=== PATIENT | male | born 1940 | race Caucasian/White ===

== ENCOUNTER → 2017-03-21 | Outpatient (CLI) | payer MEDICARE, BC | END | disposition home or self-care (01) | LOC: MRI 10:47 | DX: M54.40 Lumbago with sciatica, unspecified side (principal); M51.26 Other intervertebral disc displacement, lumbar region; M51.27 Other intervertebral disc displacement, lumbosacral region; Z85.46 Personal history of malignant neoplasm of prostate | CPT/HCPCS: 72131 ==

== ENCOUNTER → 2018-01-22 | Outpatient (CLI) | payer MEDICARE, BC ==
[~2018-01-22] MED LIST: ABIR500T PO; AMLO2.5T3 PO; AMLO5TAB7 PO; ASPI325T8 PO; ASPI81TA50 PO; ATOR20TA58 PO; BICA50TA47 PO; CALC600T4 PO; CHOL10003 PO; DEGA80VI3 SQ; DENO120V SQ; FOLI1TAB16 PO; GOSE10.8 SQ; HYDR-2761 PO; LEUP22.52 IM; LEUP45SY3 SQ; METO50TA6 PO; OMEG1CAP38 PO; OXYB5TAB PO; PRED5TAB PO; TAMS0.4C97 PO; TRAZ-86 PO; VENL37.5 PO
[2018-01-22 08:51] LABS: HEMATOCRIT 27.6 % (39.0-53.0); HEMOGLOBIN 9.1 g/dL (13.0-17.5)
[2018-01-22 10:24] VITALS: BP 122/59
[2018-01-22 11:10] VITALS: BP 122/61
[2018-01-22 12:07] VITALS: BP 131/62
[2018-01-22 12:29] VITALS: BP 131/62
== END ==
LOC: OPS 08:00
PROVIDERS: ATTEND Internal Medicine Hematology & Oncology
DX: C61 Malignant neoplasm of prostate (principal); M54.40 Lumbago with sciatica, unspecified side; Z95.0 Presence of cardiac pacemaker; Z85.830 Personal history of malignant neoplasm of bone
CPT/HCPCS: 36415; 36430; 85014; 85018; 86850; 86900; 86901; 86920; P9016

== ENCOUNTER 2018-12-20 02:44 | Inpatient (IN) | payer MEDICARE, BC ==
[~2018-12-20] VITALS: Ht 175.3 cm
[~2018-12-20 02:44] MED LIST changes: -AMLO2.5T3 PO; +AMLO2.5T5 PO; +AMLO5TAB10 PO; -AMLO5TAB7 PO; -OXYB5TAB PO; +OXYB5TAB2 PO; +TRAZ150T49 PO
--- NOTE | 2018-12-20 05:50 | NUR ---
ADMISSION NOTE Pt arrived to room 656 via cart from EMS from [facility] ER. Pt transferred self to bed. Pt is Ox4, but becomes drowsy easily when resting in bed, denies pain. Pt ambulated to the bathroom with standby assist. Pt back to bed, bed alarm on, pt educated to call if needed to get OOB. Pt vu. Call light given to pt and explained use. Assessment and admission questions completed as well as home medication list reviewed with pt. Pt given admission packet, denies further question. Will monitor.
[2018-12-20 06:00] VITALS: BP 141/78
[2018-12-20] MEDS ORDERED: FOLI200T12 PO (06:40)
[2018-12-20] MEDS ORDERED: TRAZ-86 PO (06:40)
--- NOTE | 2018-12-20 06:50 | NUR ---
Nursing Note Dr. Gómez notified of pt admission. Orders for IVF and diet obtained, states he will be in to see patient this morning.
[2018-12-20 07:00] VITALS: BP 135/69
[2018-12-20] MEDS: IV NORMAL SALINE 1000ML BAG 1,000 ML IV SCH ×2 (08:03→20:20)
[2018-12-20 11:00] VITALS: BP 121/66
--- NOTE | 2018-12-20 11:51 | PDOC2 ---
CONSULT Date of Consult Date of Consult DATE: 12/20/18 TIME: 11:51 Reason for Consult Reason for Consult: Syncope Referring Physician Referring Physician: Dr. Gómez Identification/Chief Complaint Chief Complaint Syncope Source Source: Chart review, Patient History of Present Illness Reason for Visit: 78-year-old male with history of coronary artery disease s/p CABG and sick sinus syndrome s/p permanent pacemaker implantation usually followed by cardiology at [facility] apparently had an episode of syncope while using the bathroom. According to patient and family, he has not been feeling well for the last one week with lack of appetite and has not been drinking of water. He denied any chest pain, orthopnea/PND or palpitations. He did state that he has significant weight loss in the last one year. He is currently being treated for prostate cancer by oncology team. Past Medical History Past Medical History Coronary artery disease s/p CABG in 1981 Sick sinus syndrome s/p permanent pacemaker implantation 2 years ago without any recent interrogation Hypertension Hyperlipidemia Metastatic prostate cancer Past Surgical History Past Surgical History Coronary artery bypass surgery Permanent pacemaker implantation Bilateral cataract extraction Family History Family History not contributory Social History Social History Patient quit smoking in 1981, admitted to 2 drinks of Margaritas daily but denied any drug abuse Current Medications Current Medications Current Medications Sodium Chloride 1,000 ml @ 75 mls/hr [id number] IV Last administered on 12/20/18at 08:03; Start 12/20/18 at 07:00 Amlodipine Besylate (Norvasc) 5 mg DAILY PO ; Start 12/20/18 at 12:00 Aspirin (Ecotrin) 81 mg DAILY PO ; Start 12/20/18 at 12:00 Trazodone HCl (Desyrel) 200 mg HS PO ; Start 12/20/18 at 21:00 Multivit/ Folic Acid/Iron (Multivitamin ) 1 tab DAILY PO ; Start 12/20/18 at 12:00 Fish Oil (Fish Oil) 1,000 mg DAILY PO ; Start 12/20/18 at 12:00 Active Scripts Active Reported Men's Multivitamin Gummies (Folic Acid/Multivit-Minerals) 200 Mcg Tab.chew 200 Mcg PO DAILY Trazodone Hcl 100 Mg Tablet 200 Mg PO HS Aspir-Low (Aspirin) 81 Mg Tablet. 81 Mg PO DAILY Amlodipine Besylate 5 Mg Tablet 5 Mg PO DAILY Keeler 3 Fish Oil Softgel (Keeler-3 Fatty Acids/Fish Oil) 1 Each Capsule. 1 Each PO DAILY Allergies Allergies: Coded Allergies: No Known Drug Allergies (Unverified , 01/22/18) ROS General: YES: Fatigue, Malaise, Appetite (loss of) PSYCHOLOGICAL ROS: No: Hallucinations Eyes: No Loss of vision HEENT: No: Epistaxis Respiratory: No: Hemoptysis, Shortness of breath Cardiovascular: No Chest Pain, No Palpitations Gastrointestinal: No Vomiting, No Diarrhea Genitourinary: No Hematuria Neurological: No Seizures Skin: No Rash Physical Exam General: Alert, Oriented X3 HEENT: Atraumatic Lungs: Clear to auscultation Heart: Regular rate Abdomen: Soft Extremities: No edema Psych/Mental Status: Mood NL Vitals VITALS Vital Signs Date Time Temp Pulse Resp B/P (MAP) Pulse Ox O2 Delivery O2 Flow Rate FiO2 12/20/18 11:00 97.3 91 20 121/66 (84) 94 Room Air 97.3 Assessment/Plan Assessment/Plan 1. Syncope most probably secondary to dehydration. Doubt pacemaker malfunction but we'll have it interrogated to rule out malfunction and any significant arrhythmias. 2. Coronary artery disease s/p CABG in 1981 with possible percutaneous interventions thereafter. He is usually followed by [facility] cardiology. We will obtain records. Check 2-D echo if he has not had any recent echocardiogram. He is presently chest pain-free. 3. Sick sinus syndrome s/p permanent pacemaker implantation 4. HTN: controlled 5. Metastatic prostate cancer: Per oncology team Thank you for your consultation. KARLO MANRIQUEZ MD Dec 20, 2018 11:51
[2018-12-20] MEDS: PRENATAL MULTIVITAMIN TABLET. PO SCH (12:00)
--- NOTE | 2018-12-20 12:48 | HP ---
ADMIT DATE: 12/20/2018 HISTORY OF PRESENT ILLNESS: The patient is a 78-year-old male patient who was brought to the Emergency Room yesterday and he apparently has fallen in the bathroom and his son said that his father has been a lot more weaker since last Saturday and he found him in the bathroom with his head up against the wall. He was turned around and lay down after I get him up in the chair. When the garden center manager arrived, he had vomiting episode. When he spoke with the patient himself, when he spoke with ER physician said he passed out; however, when he spoked him this morning, he said he just slid down the wall. Apparently, he has other episodes of syncope before. Apparently, attempt to interrogate his pacemaker has failed twice about 2 weeks ago. When I questioned him specifically, he denied any chest pain, dizziness, lightheadedness or vertigo. He apparently has had history of coronary artery disease and myocardial infarction, exactly he has cardiac arrest in 1981. At that time, he underwent triple bypass surgery. He apparently had had a pacemaker placed at [facility] and has been receiving radiation therapy at [facility]. He apparently had compression of his left facial nerve, treated with radiation therapy and improved. He did not have any change in his medication. He denied any travel or recent ill contact. He was evaluated extensively in the Emergency Room of [facility]. There, he was found to have leukopenia. His chemistry, however, did show increased elevated lipase and hypomagnesemia. His D-dimer was high at 6.25 and he has had a CT scan of the chest, abdomen and pelvis which was negative for PE. He was transferred to [facility] for further evaluation and treatment. PAST MEDICAL HISTORY: Significant for hypertension, hyperlipidemia, coronary artery disease, status post NV, status post coronary artery bypass surgery in 1981, benign prostatic hypertrophy and prostate cancer, osteoarthritis. PAST SURGICAL HISTORY: Significant for bilateral cataract extraction and coronary artery bypass graft surgery. ALLERGIES: He has no known drug allergies. MEDICATIONS: He is currently on following medications: He is on Zytiga 1000 mg p.o. daily, atorvastatin calcium 20 mg at bedtime, amlodipine besylate 5 mg daily, aspirin 81 mg once a day, trazodone 100 mg twice a day, venlafaxine 37.5 mg twice a day, calcium carbonate with vitamin D3 one tablet daily, prednisone 5 mg p.o. b.i.d., folic acid 1 mg daily, cholecalciferol 2000 international unit once a day and omega-3 fatty acids 1200 mg once a day. FAMILY HISTORY: He has 2 brothers, one at the age of 49 because of cancer, the other one at age of 46 with alcoholism and myocardial infarction. He has sister, still alive at age of 66 and apparently healthy. His father at the age of 48 because of massive CVA. Mother in her 70s. SOCIAL HISTORY: He is . His son lives with him. He quit smoking in 1981. Continue to drink Leslie daily. He drinks 2 drinks Leslie every day. He denied any illicit drug use. He is retired. He uses a walker and a cane at home. REVIEW OF SYSTEMS: The patient denied any blurring of vision. He has bilateral cataract extraction, but denied any glaucoma or macular degeneration. Denied any earache, tinnitus or sensorineural deafness. Denied any nosebleeds, stuffy nose or postnasal drip. Denied any sore throat, sore tongue, toothache, hoarseness of voice or difficulty swallowing. Denied any nausea, vomiting, diarrhea or constipation. Denied any hematemesis, melena or hematochezia. Denied any dysuria, frequency or hematuria. He denied any chest pain, shortness of breath, orthopnea or paroxysmal nocturnal dyspnea. Denied any cough, phlegm or hemoptysis. Denied any dizziness, lightheadedness or vertigo. His main complaint is generalized weakness that is the biggest complaint he has. PHYSICAL EXAMINATION: GENERAL: When I examined him on arrival to [facility], he was resting, slightly propped up in bed, in no apparent distress, pale but no jaundice, cyanosis or thyromegaly. No jugular venous distention. No limb edema. VITAL SIGNS: His heart rate was 93, blood pressure was 141/78, temperature was 97.6, respiratory rate was 20 and oxygen saturation was 95% on room air. HEAD, EYES, EARS, NOSE AND THROAT: Showed normocephalic, atraumatic. NECK: Supple. HEART: Showed normal first and second heart sounds. No gallop, rub or murmur. CHEST: Clear to auscultation. No crepitation or rhonchi. ABDOMEN: Distended, soft, nontender. No guarding or rigidity. No organomegaly. All hernial orifice intact. Bowel sounds normal. NEUROLOGIC: He was awake, alert, responding appropriately. All cranial nerves are intact. EXTREMITIES: He moves extremities without difficulty. He normally uses a walker and a cane. LABORATORY DATA: His lab work done at the Emergency Room of [facility] showed a white cell count of 3300, hemoglobin 10, hematocrit 29, MCV 103 and platelet count of 176,000. His chemistry showed a serum sodium 130, potassium 3.5, chloride 97, bicarbonate 25, anion gap of 8, BUN 13 and creatinine 1. Estimated GFR was 72 mL per minute. His glucose was 121, calcium was 8.7 and magnesium was 1.4. Total bilirubin, AST, ALT and alkaline phosphatase were normal. CK was 73. Troponin was less than 0.017. Beta natriuretic peptide was 848. Total protein was 6.7, albumin was 2.6 and lipase was 503. TSH was normal at 3.162. His prothrombin time was 9.6, INR of 0.9, aPTT was 28. D-dimer was 6.25. His urinalysis was essentially unremarkable. Toxic screen was negative. He has had extensive imaging studies at [facility]. His CT scan of the head showed no pathological extraaxial or intraaxial fluid collection. The ventricles and basal cisterns are within normal limits, mild diffuse atrophy, no acute intracranial bleed, no large scalp hematoma. Orbits are within normal limits. No focal loss of mendoza-white matter differentiation. No acute calvarial fracture visualized. Paranasal sinuses and mastoid air cells are clear. Cervical spine CT scan showed no acute fracture, multifocal areas of sclerosis suggest also blastic metastases. His chest x-ray showed that interstitial opacities, maybe secondary to atypical viral infection. Diffuse sclerosis of the bone suggests osteoblastic metastases. He did have a CT scan of the chest, abdomen and pelvis which showed that he has no PE, early changes of interstitial fibrosis, small area of ground glass opacity in the left upper lobe maybe secondary to infection, has diffuse osteoblastic osseous metastases. ASSESSMENT AND PLAN: In summary, this is a 78-year-old male patient who was admitted with a syncopal episode. He complained of generalized weakness. He has diffuse metastatic prostate cancer for which he has received radiation therapy at this hospital and he has pacemaker that was interrogated 2 weeks ago and apparently could not do it. My plan is to consult the Cardiology, check his orthostatics and interrogate his pacemaker. TAMAR GARLAND MD DR: MARTIN/celine JOB#: [id number] / [id number]
[2018-12-20] MEDS: OMEGA-3 FATTY ACIDS/FISH OIL 1,000 MG CAPSULE. PO SCH (13:23)
[2018-12-20] MEDS: ASPIRIN ENTERIC COATED 81 MG TABLET.DR. PO SCH (13:23)
[2018-12-20] MEDS: amLODIPine BESYLATE 5 MG TABLET PO SCH (13:23)
--- NOTE | 2018-12-20 14:29 | PDOC2 ---
CONSULT Date of Consult Date of Consult DATE: 12/20/18 TIME: 14:17 Reason for Consult Reason for Consult: Metastatic Prostate Cancer Referring Physician Referring Physician: Dr. Gómez Source Source: Caregiver, Chart review, Patient History of Present Illness Reason for Visit: 78 yo male with long history of metastatic prostate cancer who follows with Dr. Crenshaw as on outpatient. For the prostate cancer, he has been extensively treated in the past and he is only receiving denosumab for bone health. He is off all therapy for his prostate cancer. He was on his way to the bathroom and had a syncopal episode. In the ED at [facility], he had a ct head and neck that showed no obvious bleed, no fractures and multiple focal areas of sclerosis from bone mets. CTA of the chest showed no PE, BLOSSOM opacities and osteoblastic bone lesions. He has a pacemaker in place, [facility] and had an attempted interrogation a couple of weeks ago, but this was unsuccessful. Currently, he denies any complaints. Past Medical History Cardiovascular: CAD, HTN, KS, Syncope, Hyperlipidemia, Other (Pacemaker) Heme/Onc: Cancer (Prostate) Family History Family History Brother of cancer, family history of cva Social History Social History QWuit smoking 1981, has a rajendra daily Current Medications Current Medications Current Medications Sodium Chloride 1,000 ml @ 75 mls/hr [id number] IV Last administered on 12/20/18at 08:03; Start 12/20/18 at 07:00 Amlodipine Besylate (Norvasc) 5 mg DAILY PO Last administered on 12/20/18at 13:23; Start 12/20/18 at 12:00 Aspirin (Ecotrin) 81 mg DAILY PO Last administered on 12/20/18at 13:23; Start 12/20/18 at 12:00 Trazodone HCl (Desyrel) 200 mg HS PO ; Start 12/20/18 at 21:00 Multivit/ Folic Acid/Iron (Multivitamin ) 1 tab DAILY PO Last administered on 12/20/18at 12:00; Start 12/20/18 at 12:00 Fish Oil (Fish Oil) 1,000 mg DAILY PO Last administered on 12/20/18at 13:23; Start 12/20/18 at 12:00 Active Scripts Active Reported Men's Multivitamin Gummies (Folic Acid/Multivit-Minerals) 200 Mcg Tab.chew 200 Mcg PO DAILY Trazodone Hcl 100 Mg Tablet 200 Mg PO HS Aspir-Low (Aspirin) 81 Mg Tablet. 81 Mg PO DAILY Amlodipine Besylate 5 Mg Tablet 5 Mg PO DAILY Hillside 3 Fish Oil Softgel (Hillside-3 Fatty Acids/Fish Oil) 1 Each Capsule. 1 Each PO DAILY Allergies Allergies: Coded Allergies: No Known Drug Allergies (Unverified , 01/22/18) ROS General: YES: Fatigue; No: Chills, Night Sweats, Malaise, Appetite, Other PSYCHOLOGICAL ROS: YES: Irritablity Eyes: No Blurry vision, No Decreased vision, No Double vision, No Dry eyes, No Excessive tearing, No Eye Pain, No Itchy Eyes, No Loss of vision, No Photophobia , No Scotomata, No Uses contacts, No Uses glasses, No Other HEENT: No: Heacaches, Visual Changes, Hearing change, Nasal congestion, Nasal discharge, Oral lesions, Sinus pain, Sore Throat, Epistaxis, Sneezing, Snoring, Tinnitus, Vertigo, Vocal changes, Other ALLERGY AND IMMUNOLOGY: No: Hives, Insect Bite Sensitivity, Itchy/Watery Eyes, Nasal Congestion, Post Nasal Drip, Seasonal Allergies, Other Hematological and Lymphatic: No: Bleeding Problems, Blood Clots, Blood Transfusions, Brusing, Night Sweats, Pallor, Swollen Lymph Nodes, Other ENDOCRINE: No: Breast Changes, Galactorrhea, Hair Pattern Changes, Hot Flashes, Malaise/lethargy, Mood Swings, Palpitations, Polydipsia/polyuria, Skin Changes, Temperature Intolerance, Unexpected Weight Changes, Other Respiratory: No: Cough, Hemoptysis, Orthopnea, Pleuritic Pain, Shortness of breath, SOB with excertion, Sputum Changes, Stridor, Tachypnea, Wheezing, Other Cardiovascular: No Chest Pain, No Palpitations, No Orthopnea, No Paroxysmal Noc. Dyspnea, No Edema, No Lt Headedness, No Other Gastrointestinal: No Nausea, No Vomiting, No Abdominal Pain, No Diarrhea, No Constipation, No Melena, No Hematochezia, No Other Genitourinary: No Dysuria, No Frequency, No Incontinence, No Hematuria, No Retention, No Discharge, No Urgency, No Pain, No Flank Pain, No Other, No , No , No , No , No , No , No Musculoskeletal: No Gait Disturbance, No Joint Pain, No Joint Stiffness, No Joint Swelling, No Muscle Pain, No Muscular Weakness, No Pain In:, No Swelling In:, No Other Neurological: Yes Gait Disturbance Skin: No Dry Skin, No Eczema, No Hair Changes, No Lumps, No Mole Changes, No Mottling, No Nail Changes, No Pruritus, No Rash, No Skin Lesion Changes, No Other, No Acne Physical Exam General: Alert, Oriented X3 HEENT: PERRLA Lungs: Clear to auscultation, Normal air movement Heart: Regular rate, Normal S1, Normal S2 Abdomen: Soft, No tenderness Extremities: No clubbing, No cyanosis Vitals VITALS Vital Signs Date Time Temp Pulse Resp B/P (MAP) Pulse Ox O2 Delivery O2 Flow Rate FiO2 12/20/18 13:23 91 121/66 12/20/18 11:00 97.3 20 94 Room Air 97.3 Assessment/Plan Assessment/Plan 1. Metastatic prostate cancer. He has been extensively treated in the past. He last received lupron in February and was offered xtandi but has declined it. He currently is on surveillance with him receiving only xgeva for bone protection. He has an appointment to see Dr. Crenshaw on 12/26. 2. Syncope. He had a ct scan at the ED that as per report did not have any obvious mets. He states he may of had an MRI brain a couple of weeks ago at [facility]. If so, this could be helpful to r/o intracranial mets, but with his pacemaker, I am not sure whether or not he had the test. He is being seen by Cardiology. DIDIER KIMBALL MD Dec 20, 2018 14:29
[2018-12-20 15:00] VITALS: BP 120/48
[2018-12-20 19:56] VITALS: BP 115/53
[2018-12-20] MEDS: traZODone 100 MG TABLET. PO SCH (20:05)
[2018-12-20 23:35] VITALS: BP 85/39
[2018-12-21 03:14] VITALS: BP 113/51
[2018-12-21 04:40] LABS: HEMATOCRIT 25.8 % (39.0-53.0); HEMOGLOBIN 8.8 g/dL (13.0-17.5); RED BLOOD COUNT 2.51 x10^6/uL (4.30-5.70); RED CELL DISTRIBUTION WIDTH 15.9 % (11.5-14.5); WHITE BLOOD COUNT 5.5 x10^3/uL (4.0-11.0)
[2018-12-21 05:12] LABS: ALBUMIN 2.4 g/dL (3.4-5.0); ALBUMIN/GLOBULIN RATIO 0.6 (1.0-1.7); CALCIUM 8.8 mg/dL (8.5-10.1); GFR 72.1; POTASSIUM 4.1 mmol/L (3.5-5.1); TOTAL BILIRUBIN 0.2 mg/dL (0.2-1.0); TOTAL PROTEIN 6.2 g/dL (6.4-8.2)
[2018-12-21 07:00] VITALS: BP 124/49
[2018-12-21] MEDS: PRENATAL MULTIVITAMIN TABLET. PO SCH (09:00)
[2018-12-21] MEDS: IV NORMAL SALINE 1000ML BAG 1,000 ML IV SCH ×2 (09:40→21:23)
[2018-12-21] MEDS: ASPIRIN ENTERIC COATED 81 MG TABLET.DR. PO SCH (09:49)
[2018-12-21] MEDS: amLODIPine BESYLATE 5 MG TABLET PO SCH (09:50)
[2018-12-21] MEDS: OMEGA-3 FATTY ACIDS/FISH OIL 1,000 MG CAPSULE. PO SCH (09:50)
[2018-12-21 11:00] VITALS: BP 143/65
--- NOTE | 2018-12-21 12:23 | PDOC ---
PROGRESS NOTES Subjective Subjective Feeling better today. He denied any dizziness. Objective Objective Vital Signs Date Time Temp Pulse Resp B/P (MAP) Pulse Ox O2 Delivery O2 Flow Rate FiO2 12/21/18 09:50 60 124/49 12/21/18 07:00 97.6 20 95 Room Air 97.6 Intake and Output 12/21/18 07:00 Intake Total 500 ml Balance 500 ml Intake Oral 500 ml Physical Exam Abdomen: Soft Heart: Regular rate Extremities: No edema General: Alert, Oriented X3 HEENT: Atraumatic Lungs: Clear to auscultation Psych/Mental Status: Mood NL Assessment Assessment 1. Syncope most probably secondary to dehydration. Pacemaker interrogation showed normal function with adequate battery life. Few very brief episodes of NSVT were noted without any other arrhythmias. 2. Coronary artery disease s/p CABG in 1981 with possible percutaneous interventions thereafter. He is usually followed by [facility] cardiology. We will obtain records. 2-D echo showed normal left ventricle systolic function. He is presently chest pain-free. 3. Sick sinus syndrome s/p permanent pacemaker implantation 4. HTN: controlled 5. Metastatic prostate cancer: Per oncology team Comment Review of Relevant I have reviewed the following items jessica (where applicable) has been applied. Labs Laboratory Tests Test 12/21/18 04:00 White Blood Count 5.5 x10^3/uL (4.0-11.0) Red Blood Count 2.51 x10^6/uL (4.30-5.70) Hemoglobin 8.8 g/dL (13.0-17.5) Hematocrit 25.8 % (39.0-53.0) Mean Corpuscular Volume 103 fL (79-100) Mean Corpuscular Hemoglobin 35 pg (25-35) Mean Corpuscular Hemoglobin Concent 34 g/dL (31-37) Red Cell Distribution Width 15.9 % (11.5-14.5) Platelet Count 193 x10^3/uL (140-400) Sodium Level 140 mmol/L (136-145) Potassium Level 4.1 mmol/L (3.5-5.1) Chloride Level 105 mmol/L (98-107) Carbon Dioxide Level 22 mmol/L (21-32) Anion Gap 13 (6-14) Blood Urea Nitrogen 15 mg/dL (8-26) Creatinine 1.0 mg/dL (0.7-1.3) Estimated GFR (Cockcroft-Gault) 72.1 BUN/Creatinine Ratio 15 (6-20) Glucose Level 140 mg/dL (70-99) Calcium Level 8.8 mg/dL (8.5-10.1) Total Bilirubin 0.2 mg/dL (0.2-1.0) Aspartate Amino Transf (AST/SGOT) 20 U/L (15-37) Alanine Aminotransferase (ALT/SGPT) 27 U/L (16-63) Alkaline Phosphatase 48 U/L (46-116) Total Protein 6.2 g/dL (6.4-8.2) Albumin 2.4 g/dL (3.4-5.0) Albumin/Globulin Ratio 0.6 (1.0-1.7) Medications Current Medications Trazodone HCl (Desyrel) 200 mg HS PO Last administered on 12/20/18at 20:05; Start 12/20/18 at 21:00 Vitals/I & O Vital Sign - Last 24 Hours 12/20/18 12/20/18 12/20/18 12/20/18 13:23 15:00 19:56 20:00 Temp 97.3 97.5 97.3 97.5 Pulse 91 71 86 Resp 20 20 B/P (MAP) 121/66 120/48 (72) 115/53 (73) Pulse Ox 96 94 O2 Delivery Room Air Room Air Room Air 12/20/18 12/21/18 12/21/18 12/21/18 23:35 03:14 07:00 09:50 Temp 97.8 97.6 97.6 97.8 97.6 97.6 Pulse 85 84 60 60 Resp 18 20 20 B/P (MAP) 85/39 (54) 113/51 (71) 124/49 (74) 124/49 Pulse Ox 92 95 95 O2 Delivery Room Air Room Air Room Air Intake and Output 12/20/18 12/20/18 12/21/18 15:00 23:00 07:00 Intake Total 150 ml 350 ml Balance 150 ml 350 ml KARLO MANRIQUEZ MD Dec 21, 2018 12:23
--- NOTE | 2018-12-21 14:15 | PN ---
DATE: 12/21/2018 SUBJECTIVE: The patient is resting, slightly propped up in bed, in no apparent respiratory distress. He is awake, alert, continued to complain of generalized weakness, has had no further syncopal episode. His pacemaker was interrogated and apparently has few episodes of short lived short runs of V-tach, but otherwise it has been functioning well. He has no postural hypertension as his orthostatic was checked. He is anemic, but his hemoglobin and hematocrit are 9 and 27 and probably not a candidate for any blood transfusion. PHYSICAL EXAMINATION: GENERAL: When I examined him, he looked pale, but no jaundice, cyanosis or thyromegaly. No jugular venous distension. No limb edema. VITAL SIGNS: Her heart rate was 60, blood pressure was 124/49, temperature was 97.6, respiratory rate 20, and oxygen saturation was 95%. HEAD, EYES, EARS, NOSE AND THROAT: Showed normocephalic, atraumatic. NECK: Supple. HEART: Showed normal first and second heart sounds with no gallop, rub or murmur. CHEST: Clear to auscultation. No crepitation or rhonchi. ABDOMEN: Distended, soft, nontender. No guarding or rigidity. No organomegaly. All hernial orifices intact. Bowel sounds normal. NEUROLOGIC: He was awake, alert, responding appropriately. All cranial nerves are intact. He moves extremities without difficulty, ambulates with a walker. His intake was 500, no output was recorded. LABORATORY DATA: Her lab work this morning showed a white cell count 5500, hemoglobin 8.8, hematocrit 25.8, MCV 103 and platelet count of 193,000. Serum sodium was 140, potassium 4.1, chloride 105, bicarbonate 22, anion gap of 13, BUN 15, creatinine 1, estimated GFR was 72 mL per minute, his glucose 140, calcium was 8.8. Total bilirubin, AST, ALT, alkaline phosphatase were normal. Total protein was 6.2, albumin was 2.4. ASSESSMENT: 1. Syncopal episode, so far the patient showed no evidence of any further episodes of syncope, and his pacemaker was interrogated and apparently working well and has no evidence of postural hypotension. 2. Generalized weakness. Apparently, this has been an ongoing problem. 3. He has a metastatic prostate cancer. 4. Coronary artery disease status post myocardial infarction. 5. Hypertension. 6. Hyperlipidemia. 7. Sick sinus syndrome, status post permanent pacemaker placement, had a lengthy discussion with the patient and the plan is for him to be discharged to a half-way facility to continue the process of rehabilitation there, and he is agreeable to this plan. We will consult the nurse case manager to see if he qualifies go to [facility]. TAMAR GARLAND MD DR: MARTIN/celine JOB#: [id number] / [id number]
--- NOTE | 2018-12-21 14:31 | CARD ---
MR#: [id number] Date of Study: 12/21/2018 Ordering Physician: KARLO ENRIQUE, Referring Physician: KARLO ENRIQUE Tech: Keturah Jamil RDCS APPROVED REPORT EXAM: Two-dimensional and M-mode echocardiogram with Doppler and color Doppler. Other Information Quality : Technically LimitedHR: 80bpm Rhythm : NSRTechnically limited study due to body habitus and CABG. INDICATION Syncope 2D DIMENSIONS RVDd3.2 (2.9-3.5cm)Left Atrium(2D)4.0 (1.6-4.0cm) IVSd1.2 (0.7-1.1cm)Aortic Root(2D)3.2 (2.0-3.7cm) LVDd5.8 (3.9-5.9cm)LVOT Diameter2.3 (1.8-2.4cm) PWd1.1 (0.7-1.1cm)LVDs3.9 (2.5-4.0cm) FS (%) 33.2 %SV103.1 ml LVEF(%)60.3 (>50%) Aortic Valve AoV Peak Kel.143.0cm/sAoV VTI28.5cm AO Peak GR.8.2mmHgLVOT VTI 15.03cm AO Mean GR.6mmHgAVA (VTI)2.20cm2 Mitral Valve MV E Zeucurpy00.1cm/sMV DECEL GULA299gb MV A Bhnzqmth16.1cm/sE/A Ratio0.6 MV A [id number] Tricuspid Valve TR P. Mbvpyiin957zi/sRAP [id number] TR Peak Gr.[id number] LEFT VENTRICLE The left ventricle is normal size. There is mild concentric left ventricular hypertrophy. The left ve ntricular systolic function is normal. The Ejection Fraction is 55-60%. Septal motion consistent with pacemaker activation. Transmitral Doppler flow pattern is Grade I-abnormal relaxation pattern. RIGHT VENTRICLE The right ventricle is normal size. There is normal right ventricular wall thickness. The right ventr icular systolic function is normal. ATRIA The left atrium is mildly dilated. The right atrium size is normal. The interatrial septum is intact with no evidence for an atrial septal defect or patent foramen ovale as noted on 2-D or Doppler imagi ng. AORTIC VALVE The aortic valve is mildly calcified. The aortic valve is trileaflet. Doppler and Color Flow revealed no significant aortic regurgitation. There is no significant aortic valvular stenosis. MITRAL VALVE The mitral valve is thickened but opens well. There is no evidence of mitral valve prolapse. There is no mitral valve stenosis. Doppler and Color-flow revealed trace mitral regurgitation. TRICUSPID VALVE The tricuspid valve is normal in structure and function. Doppler and Color Flow revealed trace tricus pid regurgitation. The PA pressure was estimated at 26 mmHg. There is no tricuspid valve prolapse or vegetation. There is no tricuspid valve stenosis. PULMONIC VALVE The pulmonic valve is not well visualized. GREAT VESSELS The aortic root is normal in size. The ascending aorta is normal in size. The IVC was not visualized. PERICARDIAL EFFUSION There is no evidence of significant pericardial effusion. Critical Notification Critical Value: No <Conclusion> The left ventricular systolic function is normal. The Ejection Fraction is 55-60%. Transmitral Doppler flow pattern is Grade I-abnormal relaxation pattern. Trace mitral regurgitation. Trace tricuspid regurgitation. The PA pressure was estimated at 26 mmHg. There is no evidence of significant pericardial effusion. Signed by : Karlo Enrique, Electronically Approved : 12/21/2018 14:31:11
[2018-12-21 15:00] VITALS: BP 123/51
[2018-12-21 19:51] VITALS: BP 131/60
[2018-12-21] MEDS: traZODone 100 MG TABLET. PO SCH (21:20)
[2018-12-21 23:40] VITALS: BP 140/70
[2018-12-22] MEDS ORDERED: ACETAMINOPHEN 325 MG TABLET. PO PRN (03:30)
[2018-12-22 03:50] VITALS: BP 108/65
[2018-12-22 04:55] LABS: BASO % 1 % (0-3); EOS % 1 % (0-3); HEMOGLOBIN 9.3 g/dL (13.0-17.5); LYMPH # 0.2 x10^3/uL (1.0-4.8); LYMPH % 5 % (24-48); MEAN CORPUSCULAR HEMOGLOBIN 35 pg (25-35); MEAN CORPUSCULAR HGB CONC 34 g/dL (31-37); MEAN CORPUSCULAR VOLUME 102 fL (79-100); MONO # 0.4 x10^3/uL (0.0-1.1); MONO % 9 % (0-9); NEUT # 3.6 x10^3/uL (1.8-7.7); NEUT % 84 % (31-73); PLATELET COUNT 212 x10^3/uL (140-400); RED BLOOD COUNT 2.64 x10^6/uL (4.30-5.70); RED CELL DISTRIBUTION WIDTH 15.6 % (11.5-14.5); WHITE BLOOD COUNT 4.3 x10^3/uL (4.0-11.0)
[2018-12-22 06:11] LABS: ALBUMIN 2.7 g/dL (3.4-5.0); ALBUMIN/GLOBULIN RATIO 0.7 (1.0-1.7); CALCIUM 8.2 mg/dL (8.5-10.1); CREATININE 1.1 mg/dL (0.7-1.3); GFR 64.6; POTASSIUM 3.9 mmol/L (3.5-5.1); TOTAL BILIRUBIN 0.2 mg/dL (0.2-1.0); TOTAL PROTEIN 6.5 g/dL (6.4-8.2)
[2018-12-22 07:00] VITALS: BP 126/66
[2018-12-22] MEDS: PRENATAL MULTIVITAMIN TABLET. PO SCH (09:00)
[2018-12-22 09:47] LABS: % BANDS 3 % (0-9); % BASOS 2 % (0-3); % LYMPHS 7 % (24-48); % MONOS 3 % (0-10); % SEGS 85 % (35-66); ANISOCYTOSIS SLIGHT; PLT ESTIMATE ADEQUATE (ADEQUATE)
[2018-12-22] MEDS: amLODIPine BESYLATE 5 MG TABLET PO SCH (10:13)
[2018-12-22] MEDS: ASPIRIN ENTERIC COATED 81 MG TABLET.DR. PO SCH (10:13)
[2018-12-22] MEDS: OMEGA-3 FATTY ACIDS/FISH OIL 1,000 MG CAPSULE. PO SCH (10:13)
--- NOTE | 2018-12-22 10:25 | NUR ---
SS following for discharge planning. SS reviewed pt chart. Pt is from home and is currently on room air. PT/OT recommended home with assistance at discharge. Pt requesting to go to [facility], ; fax [phone], at discharge. SS phoned and faxed referral to [facility] by pt request. SS will await acceptance decision and will proceed accordingly.
[2018-12-22 11:00] VITALS: BP 96/60
[2018-12-22] MEDS: IV NORMAL SALINE 1000ML BAG 1,000 ML IV SCH (12:20)
--- NOTE | 2018-12-22 12:28 | PDOC ---
PROGRESS NOTES Subjective Subjective HPI - f/u of Metastatic prostate cancer. ROS - feels very weak. Objective Objective Vital Signs Date Time Temp Pulse Resp B/P (MAP) Pulse Ox O2 Delivery O2 Flow Rate FiO2 12/22/18 10:13 96 126/66 12/22/18 07:00 98.8 18 96 Room Air 98.8 Intake and Output 12/22/18 07:00 Intake Total 1020 ml Balance 1020 ml Intake Oral 1020 ml # Voids 5 Physical Exam Heart: Normal S1, Normal S2 General: Alert, Oriented X3 Lungs: Clear to auscultation Neuro: Normal speech Psych/Mental Status: Mental status NL Assessment Assessment Assessment/Plan 1. Metastatic prostate cancer. He has been extensively treated in the past. He last received lupron in February and was offered xtandi but has declined it. He currently is on supportive care receiving only xgeva for bone protection. f/u with me 12/26/18.. 2. Syncope. He had a ct scan at the ED that as per report did not have any obvious mets. He is being seen by Cardiology who felt that the pacemaker is working well. I d/w Dr Gómez.. Comment Review of Relevant I have reviewed the following items jessica (where applicable) has been applied. Labs Laboratory Tests Test 12/21/18 04:00 12/22/18 04:35 White Blood Count 5.5 x10^3/uL (4.0-11.0) 4.3 x10^3/uL (4.0-11.0) Red Blood Count 2.51 x10^6/uL (4.30-5.70) 2.64 x10^6/uL (4.30-5.70) Hemoglobin 8.8 g/dL (13.0-17.5) 9.3 g/dL (13.0-17.5) Hematocrit 25.8 % (39.0-53.0) 27.0 % (39.0-53.0) Mean Corpuscular Volume 103 fL (79-100) 102 fL (79-100) Mean Corpuscular Hemoglobin 35 pg (25-35) 35 pg (25-35) Mean Corpuscular Hemoglobin Concent 34 g/dL (31-37) 34 g/dL (31-37) Red Cell Distribution Width 15.9 % (11.5-14.5) 15.6 % (11.5-14.5) Platelet Count 193 x10^3/uL (140-400) 212 x10^3/uL (140-400) Sodium Level 140 mmol/L (136-145) 138 mmol/L (136-145) Potassium Level 4.1 mmol/L (3.5-5.1) 3.9 mmol/L (3.5-5.1) Chloride Level 105 mmol/L (98-107) 103 mmol/L (98-107) Carbon Dioxide Level 22 mmol/L (21-32) 24 mmol/L (21-32) Anion Gap 13 (6-14) 11 (6-14) Blood Urea Nitrogen 15 mg/dL (8-26) 10 mg/dL (8-26) Creatinine 1.0 mg/dL (0.7-1.3) 1.1 mg/dL (0.7-1.3) Estimated GFR (Cockcroft-Gault) 72.1 64.6 BUN/Creatinine Ratio 15 (6-20) 9 (6-20) Glucose Level 140 mg/dL (70-99) 104 mg/dL (70-99) Calcium Level 8.8 mg/dL (8.5-10.1) 8.2 mg/dL (8.5-10.1) Total Bilirubin 0.2 mg/dL (0.2-1.0) 0.2 mg/dL (0.2-1.0) Aspartate Amino Transf (AST/SGOT) 20 U/L (15-37) 32 U/L (15-37) Alanine Aminotransferase (ALT/SGPT) 27 U/L (16-63) 27 U/L (16-63) Alkaline Phosphatase 48 U/L (46-116) 60 U/L (46-116) Total Protein 6.2 g/dL (6.4-8.2) 6.5 g/dL (6.4-8.2) Albumin 2.4 g/dL (3.4-5.0) 2.7 g/dL (3.4-5.0) Albumin/Globulin Ratio 0.6 (1.0-1.7) 0.7 (1.0-1.7) Neutrophils (%) (Auto) 84 % (31-73) Lymphocytes (%) (Auto) 5 % (24-48) Monocytes (%) (Auto) 9 % (0-9) Eosinophils (%) (Auto) 1 % (0-3) Basophils (%) (Auto) 1 % (0-3) Neutrophils # (Auto) 3.6 x10^3/uL (1.8-7.7) Lymphocytes # (Auto) 0.2 x10^3/uL (1.0-4.8) Monocytes # (Auto) 0.4 x10^3/uL (0.0-1.1) Eosinophils # (Auto) 0.0 x10^3/uL (0.0-0.7) Basophils # (Auto) 0.0 x10^3/uL (0.0-0.2) Segmented Neutrophils % 85 % (35-66) Band Neutrophils % 3 % (0-9) Lymphocytes % 7 % (24-48) Monocytes % 3 % (0-10) Basophils % 2 % (0-3) Platelet Estimate Adequate (ADEQUATE) Anisocytosis Slight Iron Level 44 ug/dL (65-175) Total Iron Binding Capacity 202 ug/dL (250-450) Iron Saturation 22 % (15-34) Ferritin 1672 ng/mL (26-388) Laboratory Tests Test 12/22/18 04:35 White Blood Count 4.3 x10^3/uL (4.0-11.0) Red Blood Count 2.64 x10^6/uL (4.30-5.70) Hemoglobin 9.3 g/dL (13.0-17.5) Hematocrit 27.0 % (39.0-53.0) Mean Corpuscular Volume 102 fL (79-100) Mean Corpuscular Hemoglobin 35 pg (25-35) Mean Corpuscular Hemoglobin Concent 34 g/dL (31-37) Red Cell Distribution Width 15.6 % (11.5-14.5) Platelet Count 212 x10^3/uL (140-400) Neutrophils (%) (Auto) 84 % (31-73) Lymphocytes (%) (Auto) 5 % (24-48) Monocytes (%) (Auto) 9 % (0-9) Eosinophils (%) (Auto) 1 % (0-3) Basophils (%) (Auto) 1 % (0-3) Neutrophils # (Auto) 3.6 x10^3/uL (1.8-7.7) Lymphocytes # (Auto) 0.2 x10^3/uL (1.0-4.8) Monocytes # (Auto) 0.4 x10^3/uL (0.0-1.1) Eosinophils # (Auto) 0.0 x10^3/uL (0.0-0.7) Basophils # (Auto) 0.0 x10^3/uL (0.0-0.2) Segmented Neutrophils % 85 % (35-66) Band Neutrophils % 3 % (0-9) Lymphocytes % 7 % (24-48) Monocytes % 3 % (0-10) Basophils % 2 % (0-3) Platelet Estimate Adequate (ADEQUATE) Anisocytosis Slight Sodium Level 138 mmol/L (136-145) Potassium Level 3.9 mmol/L (3.5-5.1) Chloride Level 103 mmol/L (98-107) Carbon Dioxide Level 24 mmol/L (21-32) Anion Gap 11 (6-14) Blood Urea Nitrogen 10 mg/dL (8-26) Creatinine 1.1 mg/dL (0.7-1.3) Estimated GFR (Cockcroft-Gault) 64.6 BUN/Creatinine Ratio 9 (6-20) Glucose Level 104 mg/dL (70-99) Calcium Level 8.2 mg/dL (8.5-10.1) Iron Level 44 ug/dL (65-175) Total Iron Binding Capacity 202 ug/dL (250-450) Iron Saturation 22 % (15-34) Ferritin 1672 ng/mL (26-388) Total Bilirubin 0.2 mg/dL (0.2-1.0) Aspartate Amino Transf (AST/SGOT) 32 U/L (15-37) Alanine Aminotransferase (ALT/SGPT) 27 U/L (16-63) Alkaline Phosphatase 60 U/L (46-116) Total Protein 6.5 g/dL (6.4-8.2) Albumin 2.7 g/dL (3.4-5.0) Albumin/Globulin Ratio 0.7 (1.0-1.7) Medications Current Medications Sodium Chloride 1,000 ml @ 75 mls/hr [id number] IV Last administered on 12/20/18at 08:03; Start 12/20/18 at 07:00 Amlodipine Besylate (Norvasc) 5 mg DAILY PO Last administered on 12/22/18at 10:13; Start 12/20/18 at 12:00 Aspirin (Ecotrin) 81 mg DAILY PO Last administered on 12/22/18at 10:13; Start 12/20/18 at 12:00 Trazodone HCl (Desyrel) 200 mg HS PO Last administered on 12/21/18at 21:20; Start 12/20/18 at 21:00 Multivit/ Folic Acid/Iron (Multivitamin ) 1 tab DAILY PO Last administered on 12/22/18at 09:00; Start 12/20/18 at 12:00 Fish Oil (Fish Oil) 1,000 mg DAILY PO Last administered on 12/22/18at 10:13; Start 12/20/18 at 12:00 Acetaminophen (Tylenol) 650 mg PRN Q4HRS PRN PO FEVER/MILD PAIN; Start at 03:30 Active Scripts Active Reported Men's Multivitamin Gummies (Folic Acid/Multivit-Minerals) 200 Mcg Tab.chew 200 Mcg PO DAILY Trazodone Hcl 100 Mg Tablet 200 Mg PO HS Aspir-Low (Aspirin) 81 Mg Tablet. 81 Mg PO DAILY Amlodipine Besylate 5 Mg Tablet 5 Mg PO DAILY [place] 3 Fish Oil Softgel ([place]-3 Fatty Acids/Fish Oil) 1 Each Capsule.dr 1 Each PO DAILY Vitals/I & O Vital Sign - Last 24 Hours 12/21/18 12/21/18 12/21/18 12/21/18 15:00 19:51 20:00 23:40 Temp 97.6 98.1 100.7 97.6 98.1 100.7 Pulse 89 100 110 Resp 22 20 16 B/P (MAP) 123/51 (75) 131/60 (83) 140/70 (93) Pulse Ox 100 98 96 O2 Delivery Room Air Room Air Room Air Room Air 12/22/18 12/22/18 12/22/18 12/22/18 03:50 06:20 07:00 10:13 Temp 101.9 98.4 98.8 101.9 98.4 98.8 Pulse 106 98 96 96 Resp 16 18 B/P (MAP) 108/65 (79) 126/66 (86) 126/66 Pulse Ox 94 96 O2 Delivery Room Air Room Air Intake and Output 12/21/18 12/21/18 12/22/18 15:00 23:00 07:00 Intake Total 540 ml 180 ml 300 ml Balance 540 ml 180 ml 300 ml ZIA MEZA MD Dec 22, 2018 12:28
--- NOTE | 2018-12-22 13:03 | PDOC ---
MARLIN BOYER JOANNA 12/22/18 1303: CARDIO Progress Notes Date and Time Date of Service 12/22/18 Time of Evaluation 130 Subjective Subjective: No Chest Pain, No shortness of breath, No Palpitations, No Dizziness Vitals Vitals Vital Signs Date Time Temp Pulse Resp B/P (MAP) Pulse Ox O2 Delivery O2 Flow Rate FiO2 12/22/18 11:00 98.6 94 18 96/60 (72) 94 Room Air 98.6 Weight Weight [ ] Input and Output Intake and Output Intake and Output 12/22/18 07:00 Intake Total 1020 ml Balance 1020 ml Intake Oral 1020 ml # Voids 5 Laboratory Labs Laboratory Tests Test 12/22/18 04:35 White Blood Count 4.3 x10^3/uL (4.0-11.0) Red Blood Count 2.64 x10^6/uL (4.30-5.70) Hemoglobin 9.3 g/dL (13.0-17.5) Hematocrit 27.0 % (39.0-53.0) Mean Corpuscular Volume 102 fL (79-100) Mean Corpuscular Hemoglobin 35 pg (25-35) Mean Corpuscular Hemoglobin Concent 34 g/dL (31-37) Red Cell Distribution Width 15.6 % (11.5-14.5) Platelet Count 212 x10^3/uL (140-400) Neutrophils (%) (Auto) 84 % (31-73) Lymphocytes (%) (Auto) 5 % (24-48) Monocytes (%) (Auto) 9 % (0-9) Eosinophils (%) (Auto) 1 % (0-3) Basophils (%) (Auto) 1 % (0-3) Neutrophils # (Auto) 3.6 x10^3/uL (1.8-7.7) Lymphocytes # (Auto) 0.2 x10^3/uL (1.0-4.8) Monocytes # (Auto) 0.4 x10^3/uL (0.0-1.1) Eosinophils # (Auto) 0.0 x10^3/uL (0.0-0.7) Basophils # (Auto) 0.0 x10^3/uL (0.0-0.2) Segmented Neutrophils % 85 % (35-66) Band Neutrophils % 3 % (0-9) Lymphocytes % 7 % (24-48) Monocytes % 3 % (0-10) Basophils % 2 % (0-3) Platelet Estimate Adequate (ADEQUATE) Anisocytosis Slight Sodium Level 138 mmol/L (136-145) Potassium Level 3.9 mmol/L (3.5-5.1) Chloride Level 103 mmol/L (98-107) Carbon Dioxide Level 24 mmol/L (21-32) Anion Gap 11 (6-14) Blood Urea Nitrogen 10 mg/dL (8-26) Creatinine 1.1 mg/dL (0.7-1.3) Estimated GFR (Cockcroft-Gault) 64.6 BUN/Creatinine Ratio 9 (6-20) Glucose Level 104 mg/dL (70-99) Calcium Level 8.2 mg/dL (8.5-10.1) Iron Level 44 ug/dL (65-175) Total Iron Binding Capacity 202 ug/dL (250-450) Iron Saturation 22 % (15-34) Ferritin 1672 ng/mL (26-388) Total Bilirubin 0.2 mg/dL (0.2-1.0) Aspartate Amino Transf (AST/SGOT) 32 U/L (15-37) Alanine Aminotransferase (ALT/SGPT) 27 U/L (16-63) Alkaline Phosphatase 60 U/L (46-116) Total Protein 6.5 g/dL (6.4-8.2) Albumin 2.7 g/dL (3.4-5.0) Albumin/Globulin Ratio 0.7 (1.0-1.7) Physical Exam HEENT: Neck Supple W Full Motion Chest: Symmetric LUNGS: Clear to Auscultation Heart: S1S2, RRR Abdomen: Soft N/T Extremities: No Edema Neurology: alert, follow commands Assessment Assessment 1. Syncope most probably secondary to dehydration. Pacemaker interrogation showed normal function with adequate battery life. Few very brief episodes of NSVT were noted without any other arrhythmias. 2. CAD s/p CABG in 1981 with possible PCI thereafter. Follows with [facility] cardiology; awaiting OSH records. Echo showed normal LVEF. CP free. 3. SSS s/p PPM 4. HTN: controlled 5. Metastatic prostate cancer: Per oncology team KARLO MANRIQUEZ MD 12/22/18 1522: CARDIO Progress Notes Assessment Assessment Patient seen and examined. Agree with AGRICULTURAL ENGINEERING TEACHER's assessment and plan. Syncope most probably secondary to dehydration. Pacemaker check showed normal function. CAD status clinically stable. Follow-up with primary tour leader. MARLIN BOYER APRN Dec 22, 2018 13:03 KARLO MANRIQUEZ MD Dec 22, 2018 15:22
[2018-12-22 15:00] VITALS: BP 114/54
[2018-12-22 19:49] VITALS: BP 106/45
[2018-12-22] MEDS: traZODone 100 MG TABLET. PO SCH (21:00)
[2018-12-22 23:37] VITALS: BP 132/42
[2018-12-23] MEDS: IV NORMAL SALINE 1000ML BAG 1,000 ML IV SCH (01:40)
[2018-12-23 03:46] VITALS: BP 131/71
[2018-12-23 07:15] VITALS: BP 126/66
[2018-12-23 08:02] LABS: CALCIUM 8.2 mg/dL (8.5-10.1); CREATININE 0.9 mg/dL (0.7-1.3); GFR 81.4; POTASSIUM 3.6 mmol/L (3.5-5.1)
[2018-12-23 08:17] VITALS: BP 126/66
[2018-12-23] MEDS: amLODIPine BESYLATE 5 MG TABLET PO SCH (08:17)
[2018-12-23] MEDS: OMEGA-3 FATTY ACIDS/FISH OIL 1,000 MG CAPSULE. PO SCH (08:17)
[2018-12-23] MEDS: ASPIRIN ENTERIC COATED 81 MG TABLET.DR. PO SCH (08:17)
[2018-12-23] MEDS: PRENATAL MULTIVITAMIN TABLET. PO SCH (08:18)
--- NOTE | 2018-12-23 08:45 | NUR ---
SW following pt. Spoke with Supriya at [facility]. Supriya reported nursing has not reviewed med list yet and Acceptance is still pending. Will f/u in later again.
--- NOTE | 2018-12-23 09:05 | SNU/HH DC ---
DISCHARGE WITH HOME HEALTH DISCHARGE INFORMATION: Discharge Date: Dec 23, 2018 Final Diagnosis: weakness metastatic prostate cancer Condition on Discharge: Stable CODE STATUS: Code Status: Full HOME HEALTH: Face to Face: I certify this patient is under my care and that I, or a nurse practitioner or physician's personal banking assistant working with me, had a face to face encounter that meets the physician face to face encounter requirements with this patient on 12/23/18 Medical Complications: CHF, Other RN For Eval/Treatment: Yes Physical Therapy For: Evalulation/Treatment Occupational Therapy For: Evaluation/Treatment Pt Meets Homebound Status: Unsteady balance w/ amb, POST DISCHARGE ORDERS: Activity Instructions for Disc: Resume previous activity DIET AFTER DISCHARGE: Cardiac FOLLOW-UP: Follow up with: cardiology at [facility] CERTIFICATION STATEMENT: Certification Statement: Certification Statement: Based on the above finding, I certify that this patient is confined to the home and needs intermittent long term care, physical therapy and/or speech therapy, or continues to need occupational therapy.~ This patient is under my care, and I have initiated the establishment of the plan of care.~ This patient will be followed by myself or a community physician who will periodically review the plan of care. Home Meds Reported Medications Folic Acid/Multivit-Minerals (Men's Multivitamin Gummies) 200 Mcg Tab.chew, 200 MCG PO DAILY for vitamin, TAB.CHEW 12/20/18 Trazodone Hcl (TRAZODONE HCL) 100 Mg Tablet, 200 MG PO HS for sleep, TAB 12/20/18 Aspirin (ASPIR-LOW) 81 Mg Tablet., 81 MG PO DAILY for CAD 10/21/17 Amlodipine Besylate (AMLODIPINE BESYLATE) 5 Mg Tablet, 5 MG PO DAILY for HTN 10/21/17 [place]-3 Fatty Acids/Fish Oil ([place] 3 FISH OIL SOFTGEL) 1 Each Capsule., 1 EACH PO DAILY for Supplement 01/12/16 Discontinued Reported Medications Trazodone Hcl (TRAZODONE HCL) 150 Mg Tablet, 150 MG PO HS for sleep 04/02/18 Calcium Carbonate (CALCIUM) 600 Mg Tablet, 600 MG PO DAILY for Bone supplement 08/01/17 Leuprolide Acetate (LUPRON DEPOT) 22.5 Mg Syringekit, 22.5 MG IM [id number] for Metastatic Prostate Ca 04/01/17 Hydrocodone Bit/Acetaminophen (HYDROCODONE-APAP 5-325 ) 1 Each Tablet, 1 TAB PO PRN Q6HRS PRN for PAIN 01/21/17 Atorvastatin Calcium (ATORVASTATIN CALCIUM) 20 Mg Tablet, 20 MG PO DAILY for HLD 01/12/16 TAMAR GARLAND MD Dec 23, 2018 09:05
--- NOTE | 2018-12-23 09:08 | PDOC ---
PROGRESS NOTES Subjective Subjective HPI - f/u of Metastatic prostate cancer. ROS - feels better Objective Objective Vital Signs Date Time Temp Pulse Resp B/P (MAP) Pulse Ox O2 Delivery O2 Flow Rate FiO2 12/23/18 08:17 98 126/66 12/23/18 07:15 99.8 20 98 Room Air 99.8 Intake and Output 12/23/18 07:00 Intake Total 798 ml Balance 798 ml Intake Oral 798 ml Physical Exam Heart: Normal S1, Normal S2 General: Alert, Oriented X3 Lungs: Clear to auscultation Neuro: Normal speech Psych/Mental Status: Mental status NL Assessment Assessment Assessment/Plan 1. Metastatic prostate cancer. He has been extensively treated in the past. He last received lupron in February and was offered xtandi but has declined it. He currently is on supportive care receiving only xgeva for bone protection. f/u with me in 1 month. 2. Syncope. He had a ct scan at the ED that as per report did not have any obvious mets. He is being seen by Cardiology who felt that the pacemaker is working well. I d/w RN.. Comment Review of Relevant I have reviewed the following items jessica (where applicable) has been applied. Labs Laboratory Tests Test 12/22/18 04:35 12/23/18 07:30 White Blood Count 4.3 x10^3/uL (4.0-11.0) Red Blood Count 2.64 x10^6/uL (4.30-5.70) Hemoglobin 9.3 g/dL (13.0-17.5) Hematocrit 27.0 % (39.0-53.0) Mean Corpuscular Volume 102 fL (79-100) Mean Corpuscular Hemoglobin 35 pg (25-35) Mean Corpuscular Hemoglobin Concent 34 g/dL (31-37) Red Cell Distribution Width 15.6 % (11.5-14.5) Platelet Count 212 x10^3/uL (140-400) Neutrophils (%) (Auto) 84 % (31-73) Lymphocytes (%) (Auto) 5 % (24-48) Monocytes (%) (Auto) 9 % (0-9) Eosinophils (%) (Auto) 1 % (0-3) Basophils (%) (Auto) 1 % (0-3) Neutrophils # (Auto) 3.6 x10^3/uL (1.8-7.7) Lymphocytes # (Auto) 0.2 x10^3/uL (1.0-4.8) Monocytes # (Auto) 0.4 x10^3/uL (0.0-1.1) Eosinophils # (Auto) 0.0 x10^3/uL (0.0-0.7) Basophils # (Auto) 0.0 x10^3/uL (0.0-0.2) Segmented Neutrophils % 85 % (35-66) Band Neutrophils % 3 % (0-9) Lymphocytes % 7 % (24-48) Monocytes % 3 % (0-10) Basophils % 2 % (0-3) Platelet Estimate Adequate (ADEQUATE) Anisocytosis Slight Sodium Level 138 mmol/L (136-145) 139 mmol/L (136-145) Potassium Level 3.9 mmol/L (3.5-5.1) 3.6 mmol/L (3.5-5.1) Chloride Level 103 mmol/L (98-107) 105 mmol/L (98-107) Carbon Dioxide Level 24 mmol/L (21-32) 23 mmol/L (21-32) Anion Gap 11 (6-14) 11 (6-14) Blood Urea Nitrogen 10 mg/dL (8-26) 9 mg/dL (8-26) Creatinine 1.1 mg/dL (0.7-1.3) 0.9 mg/dL (0.7-1.3) Estimated GFR (Cockcroft-Gault) 64.6 81.4 BUN/Creatinine Ratio 9 (6-20) Glucose Level 104 mg/dL (70-99) 115 mg/dL (70-99) Calcium Level 8.2 mg/dL (8.5-10.1) 8.2 mg/dL (8.5-10.1) Iron Level 44 ug/dL (65-175) Total Iron Binding Capacity 202 ug/dL (250-450) Iron Saturation 22 % (15-34) Ferritin 1672 ng/mL (26-388) Total Bilirubin 0.2 mg/dL (0.2-1.0) Aspartate Amino Transf (AST/SGOT) 32 U/L (15-37) Alanine Aminotransferase (ALT/SGPT) 27 U/L (16-63) Alkaline Phosphatase 60 U/L (46-116) Total Protein 6.5 g/dL (6.4-8.2) Albumin 2.7 g/dL (3.4-5.0) Albumin/Globulin Ratio 0.7 (1.0-1.7) Magnesium Level 2.0 mg/dL (1.8-2.4) Laboratory Tests Test 12/23/18 07:30 Sodium Level 139 mmol/L (136-145) Potassium Level 3.6 mmol/L (3.5-5.1) Chloride Level 105 mmol/L (98-107) Carbon Dioxide Level 23 mmol/L (21-32) Anion Gap 11 (6-14) Blood Urea Nitrogen 9 mg/dL (8-26) Creatinine 0.9 mg/dL (0.7-1.3) Estimated GFR (Cockcroft-Gault) 81.4 Glucose Level 115 mg/dL (70-99) Calcium Level 8.2 mg/dL (8.5-10.1) Magnesium Level 2.0 mg/dL (1.8-2.4) Microbiology 12/22/18 Blood Culture - Preliminary, Resulted NO GROWTH AFTER 1 DAY Medications Current Medications Sodium Chloride 1,000 ml @ 75 mls/hr [id number] IV Last administered on 12/20/18at 08:03; Start 12/20/18 at 07:00 Amlodipine Besylate (Norvasc) 5 mg DAILY PO Last administered on 12/23/18at 08:17; Start 12/20/18 at 12:00 Aspirin (Ecotrin) 81 mg DAILY PO Last administered on 12/23/18at 08:17; Start 12/20/18 at 12:00 Trazodone HCl (Desyrel) 200 mg HS PO Last administered on 12/21/18at 21:20; Start 12/20/18 at 21:00 Multivit/ Folic Acid/Iron (Multivitamin ) 1 tab DAILY PO Last administered on 12/23/18at 08:18; Start 12/20/18 at 12:00 Fish Oil (Fish Oil) 1,000 mg DAILY PO Last administered on 12/23/18at 08:17; Start 12/20/18 at 12:00 Acetaminophen (Tylenol) 650 mg PRN Q4HRS PRN PO FEVER/MILD PAIN; Start 12/22/18 at 03:30 Active Scripts Active Reported Men's Multivitamin Gummies (Folic Acid/Multivit-Minerals) 200 Mcg Tab.chew 200 Mcg PO DAILY Trazodone Hcl 100 Mg Tablet 200 Mg PO HS Aspir-Low (Aspirin) 81 Mg Tablet. 81 Mg PO DAILY Amlodipine Besylate 5 Mg Tablet 5 Mg PO DAILY [place] 3 Fish Oil Softgel ([place]-3 Fatty Acids/Fish Oil) 1 Each Capsule. 1 Each PO DAILY Vitals/I & O Vital Sign - Last 24 Hours 12/22/18 12/22/18 12/22/18 12/22/18 10:13 11:00 15:00 19:49 Temp 98.6 98.4 98.3 98.6 98.4 98.3 Pulse 96 94 57 87 Resp 18 16 16 B/P (MAP) 126/66 96/60 (72) 114/54 (74) 106/45 (65) Pulse Ox 94 94 95 O2 Delivery Room Air Nasal Cannula Room Air 12/22/18 12/22/18 12/23/18 12/23/18 20:08 23:37 03:46 07:15 Temp 98.1 99.1 99.8 98.1 99.1 99.8 Pulse 86 53 98 Resp 16 16 20 B/P (MAP) 132/42 (72) 131/71 (91) 126/66 (86) Pulse Ox 96 96 98 O2 Delivery Room Air Room Air Room Air Room Air 12/23/18 08:17 Pulse 98 B/P (MAP) 126/66 Intake and Output 12/22/18 12/22/18 12/23/18 15:00 23:00 07:00 Intake Total 218 ml 100 ml 480 ml Balance 218 ml 100 ml 480 ml ZIA MEZA MD Dec 23, 2018 09:08
--- NOTE | 2018-12-23 09:29 | DS ---
DATE OF DISCHARGE: 12/23/2018 HOSPITAL COURSE: The patient is resting, slightly propped up in bed, no apparent distress, awake, alert. Denied any complaint. Nursing staff said he had a nonsustained short episode of ventricular tachycardia during which he was asymptomatic. His lab work showed that his magnesium and potassium are within normal range and upon consulting the Cardiology team, they recommended the patient can be discharged to follow with his Cardiology team at [facility]. He has been up and about, able to walk about 500 feet. He was not considered a good candidate for care home facility and therefore, the plan was to discharge him home with home health. PHYSICAL EXAMINATION: GENERAL: When I saw him this morning, he was somewhat pale, not jaundiced, no lymphadenopathy or thyromegaly. No jugular venous distention. No limb edema. VITAL SIGNS: His heart rate was 98, blood pressure was 126/66, temperature was 99.8, respiratory rate 20, and oxygen saturation was 98% on room air. HEAD, EYES, EARS, NOSE, AND THROAT: Showed normocephalic, atraumatic. NECK: Supple. HEART: Showed normal first and second heart sounds. No gallop or murmur. CHEST: Clear to auscultation. No crepitation or rhonchi. ABDOMEN: Distended, soft, nontender. No guarding or rigidity. No organomegaly. All hernial orifices intact. Bowel sounds normal. NEUROLOGIC: He was awake, alert, responding appropriately. All cranial nerves are intact. He moves extremities without difficulty, ambulates with a walker. LABORATORY DATA: Showed a serum sodium of 139, potassium 3.6, chloride 105, bicarbonate 23, anion gap of 11, BUN 9, creatinine 0.9, estimated GFR was 81 mL per minute. His glucose 115, calcium was 8.2, magnesium 2. His total bilirubin, AST, ALT, and alkaline phosphatase were normal. Total protein was 6.5, albumin 2.7. His white cell count was 4300, hemoglobin 9, hematocrit 27, MCV 102, and platelet count 212,000. DISCHARGE MEDICATIONS: He was discharged home to continue on amlodipine 5 mg once a day, aspirin 81 mg once a day, multivitamin 1 tablet once a day, omega-3 fatty acid 1 capsule daily, and trazodone 200 mg at bedtime. FINAL DISCHARGE DIAGNOSES: Syncope, most likely secondary to dehydration. Pacemaker interrogation showed normal function, adequate battery life. Very few brief episodes of nonsustained ventricular tachycardia were noted without any other arrhythmias; coronary artery disease, status post coronary artery bypass graft in 1981 with possible percutaneous coronary intervention thereafter; sick sinus syndrome, status post permanent pacemaker; hypertension; and metastatic prostate cancer. TAMAR GARLAND MD DR: MARTIN/celine JOB#: [id number] / [id number]
--- NOTE | 2018-12-23 10:05 | NUR ---
Pt discharged home with son. Discharge teaching reviewed. Verbalized understanding. [facility].
--- NOTE | 2018-12-23 10:08 | NUR ---
SW following pt. Pt has been accepted at [facility]. Spoke with RN and pt is walking 500ft and [facility].
[2019-01-02] MEDS ORDERED: LEUP22.52 IM (07:04)
[2019-01-02] MEDS ORDERED: HYDR-2761 PO (07:04)
== END 2018-12-23 10:05 | disposition home health service (06) | DRG 640 ==
LOC: 6 SOUTH 05:39
PROVIDERS: ADMIT Internal Medicine; ATTEND Internal Medicine
PROC: 4B02XSZ Measurement of Cardiac Pacemaker, External Approach (ICD-10-PCS; principal; 2018-12-21)
DX: E86.0 Dehydration (principal); E43 Unspecified severe protein-calorie malnutrition; I47.2 Ventricular tachycardia; I25.10 Atherosclerotic heart disease of native coronary artery without angina pectoris; D72.819 Decreased white blood cell count, unspecified; E83.42 Hypomagnesemia; I49.5 Sick sinus syndrome; I10 Essential (primary) hypertension; N40.0 Benign prostatic hyperplasia without lower urinary tract symptoms; D64.9 Anemia, unspecified; E78.5 Hyperlipidemia, unspecified; M19.90 Unspecified osteoarthritis, unspecified site; Z85.46 Personal history of malignant neoplasm of prostate; Z98.42 Cataract extraction status, left eye; Z98.41 Cataract extraction status, right eye; Z95.0 Presence of cardiac pacemaker; Z87.891 Personal history of nicotine dependence; Z80.9 Family history of malignant neoplasm, unspecified; Z82.3 Family history of stroke; Z82.49 Family history of ischemic heart disease and other diseases of the circulatory system; I25.2 Old myocardial infarction; Z86.74 Personal history of sudden cardiac arrest; Z95.1 Presence of aortocoronary bypass graft; Z92.3 Personal history of irradiation
CPT/HCPCS: 36415; 80048; 80053; 82728; 83540; 83550; 83735; 85007; 85025; 85027; 87040; 93306; J7030; 97110; 97116; 97530; 97535; G0378

== ENCOUNTER → 2019-04-17 | Outpatient (CLI) | payer MEDICARE, BC ==
[~2019-04-17] MED LIST changes: +FOLI200T12 PO; +GADOTERATE 5 MMOL/10ML VIAL. IVP ONE; +OXYB-36 PO; -OXYB5TAB2 PO; +TRAZ-123 PO; -TRAZ-86 PO
--- NOTE | 2019-04-17 13:30 | NUR ---
Pt here for MRI of the brain. [employer] pacemaker rep here to adjust pacemaker for MRI. Pt tolerated well, VSS throughout, did have some ectopy but no s/s noted by pt. After completion of MRI, pt escorted out per wc. LOYD JACKSON
--- NOTE | 2019-04-19 09:31 | RAD ---
EXAM: Brain MRI with and without contrast; orbital MRI with and without contrast. HISTORY: Metastatic prostate cancer. Right orbital pressure and decreased right vision. TECHNIQUE: Multiplanar, multisequence magnetic resonance imaging of the brain and orbits was performed prior to and following the administration of intravenous contrast. COMPARISON: CT dated 12/20/2018. MRI dated 11/03/2018. FINDINGS: There is no restricted diffusion to suggest acute or subacute infarction. There is no susceptibility effect to suggest hemorrhage. There is mild cerebral and cerebellar volume loss. There is superimposed asymmetric volume loss involving the left temporal lobe which may be due to the sequela of chronic infarction. There is associated asymmetry in the size of the right greater than left hippocampi and there is a tiny cyst or focus of encephalomalacia within the left hippocampus. There are scattered focal areas of T2/FLAIR hyperintensity within the cerebral white matter, most commonly due to chronic small vessel disease. There are normal flow voids within the cerebral vessels. There is a heterogeneous enhancing sellar and suprasellar mass measuring 1.4 cm craniocaudally by 1.0 cm anteroposteriorly by 2.6 cm transversely. This appears to extend to the left cavernous sinus to surrounding the cavernous left internal carotid artery. There is also asymmetric enhancement likely associated with this mass extending inferiorly to the left superior clivus measuring 1.1 cm in maximum dimension. There is a thickened enhancing infundibulum measuring 7 mm in caliber. The supratentorial portion of this lesion abuts and likely slightly deviates the optic chiasm. There is enhancement extending to, but not clearly involving the left greater than right orbital apex. No additional abnormal enhancing lesion is seen. There is evidence of lens surgery. There are right maxillary sinus mucous retention cysts. There is rightward nasal septal deviation. There is asymmetric dilatation of the left optic nerve sheaths. The extraocular muscles are symmetric. There is no infiltration of the retrobulbar fat. IMPRESSION: 1. 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 This measures 2.6 x 1.4 x 1.0 cm. This is minimally increased compared to the prior study dated 11/03/2018, allowing for differences in imaging technique. 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 The minimal interval change does not favor pituitary apoplexy, a finding which can be seen in the setting of prostate cancer treatment with leuprolide. There is asymmetry in left greater than right optic nerve sheath fluid which is likely due to associated mass effect, possibly increased compared to the prior study. There is a preserved flow void within the cavernous internal carotid arteries. 2. Scattered bilateral cerebral white matter changes, likely due to chronic small vessel disease. 3. Chronic asymmetric left temporal lobe volume loss superimposed on global cerebral and cerebellar volume loss. This is associated with slight asymmetry in the size of the right greater than left hippocampi. Electronically signed by: Rosette Lopez MD (04/19/2019 9:29 AM) [id number]
== END | disposition home or self-care (01) ==
LOC: MRI 15:06
PROVIDERS: ATTEND Radiology Radiation Oncology
DX: C79.82 Secondary malignant neoplasm of genital organs (principal); C80.1 Malignant (primary) neoplasm, unspecified; G93.89 Other specified disorders of brain
CPT/HCPCS: 70543; 70553; A9575